=== PATIENT | male | born 1960 | race African-American/Black ===

== ENCOUNTER 2016-08-03 04:23 | Emergency (ER) | payer BC ==
[~2016-08-03] VITALS: Ht 185.4 cm; Wt 114.6 kg
[2016-08-03 04:31] VITALS: BP 134/91; PULSE 90; RESP 16; TEMP 98.2; O2SAT 96
--- NOTE | 2016-08-03 04:49 | PD ---
HPI Chief Complaint: Injury Time Seen by Provider: 04:37 Travel History International Travel<30 days: No Contact w/Intl Traveler<30days: No Traveled to known affect area: No History of Present Illness HPI The patient is a 56-year-old male that stubbed his left great toe St[place] night. He complains of pain from just proximal to the MTP joint to the distal phalanx of the great toe. He has diffuse swelling in the great toe. He does have a history of arthritis. He has a history of prediabetes. He is not on any anticoagulants. The patient states he is told was blue but this has gone away. PFS Social History Tobacco Use: No Allergies-Medications (Allergen,Severity, Reaction): Coded Allergies: No Known Allergies (Unverified , 08/03/16) Reported Meds & Prescriptions Reported Meds & Active Scripts Active Mobic (Meloxicam) 15 Mg Tab 15 Mg PO DAILY Reported Aspirin Children's (Aspirin) 81 Mg Chew 81 Mg CHEW DAILY Etodolac ER 24 HR (Etodolac) 500 Mg Anup 500 Mg PO DAILY Atorvastatin (Atorvastatin Calcium) 20 Mg Tab 20 Mg PO HS Pioglitazone (Pioglitazone HCl) 15 Mg Tab 15 Mg PO DAILY Losartan (Losartan Potassium) 25 Mg Tab 25 Mg PO DAILY Review of Systems Except as stated in HPI: all other systems reviewed are Neg Physical Exam Narrative GENERAL: The patient is alert, oriented 3 in moderate apparent distress with his left great toe pain. His vital signs show blood pressure 134/91 but otherwise normal. SKIN: Focused skin assessment warm/dry. HEAD: Atraumatic. Normocephalic. EYES: Pupils equal and round. No scleral icterus. No injection or drainage. ENT: No nasal bleeding or discharge. Mucous membranes pink and moist. NECK: Trachea midline. No JVD. CARDIOVASCULAR: Regular rate and rhythm. No murmur appreciated. RESPIRATORY: No accessory muscle use. Clear to auscultation. Breath sounds equal bilaterally. GASTROINTESTINAL: Abdomen soft, non-tender, nondistended. Hepatic and splenic margins not palpable. MUSCULOSKELETAL: No obvious deformities. No clubbing. No cyanosis. No edema. There is tenderness over the left first MTP joint but no deformity is present. There is tenderness over the proximal phalanx and only slight tenderness over the distal phalanx of the great toe. There is diffuse swelling over the entire toe. NEUROLOGICAL: Awake and alert. No obvious cranial nerve deficits. Motor grossly within normal limits. Normal speech. PSYCHIATRIC: Appropriate mood and affect; insight and judgment normal. Data Data Last Documented VS Vital Signs Date Time Temp Pulse Resp B/P Pulse Ox O2 Delivery O2 Flow Rate FiO2 08/03/16 04:44 18 96 08/03/16 04:31 98.2 90 134/91 Room Air Orders Toe (Min 2vws) (08/03/16 04:37) MDM Medical Decision Making Medical Screen Exam Complete: Yes Emergency Medical Condition: Yes Medical Record Reviewed: Yes Interpretation(s) X-ray of the right great toe show no fracture dislocation. Differential Diagnosis Fractured toe, contusion toe, turf toe, dislocated toe, cellulitis toe Narrative Course Reexamination of the toe reveals that he is mostly tender at the joints. The IP and MTP joints are the only tender joints there. It is likely he had some bleeding into the joints, he states that he had some blueness in the area. He appears to have a contusion at the IP and MTP joints. Impression: Contusion left great toe. Diagnosis Primary Impression: Contusion of left great toe without damage to nail Additional Instructions: As we discussed, this will heal fine if you elevated at night above your heart and avoid future trauma. If this continues to hurt, follow-up with a director of enterprise architecture. Med/Other Pt SpecificInfo: Prescription(s) given Scripts Meloxicam (Mobic)15 Mg Tab15 Mg PO DAILY #30 TAB Ref 0 Prov:Patrick Bundy MD 08/03/16 Disposition: 01 DISCHARGE HOME Condition: Stable Patrick Bundy MD August 03, 2016 04:49
[2016-08-03] MEDS ORDERED: ETOD500T2 PO (04:54)
[2016-08-03] MEDS ORDERED: LOSA25TA PO (04:54)
[2016-08-03] MEDS ORDERED: ASPI81CH7 CHEW (04:54)
[2016-08-03] MEDS ORDERED: PIOG15TA5 PO (04:54)
[2016-08-03] MEDS ORDERED: ATOR20TA15 PO (04:54)
--- NOTE | 2016-08-03 05:16 | RADHPO ---
EXAM DATE/TIME: 08/03/2016 04:59 [facility] COMPARISON: No previous studies available for comparison. INDICATIONS : Left great toe pain, patient hit great toe against counter 2 days ago MEDICAL HISTORY : None. SURGICAL HISTORY : None. ENCOUNTER: Initial ACUITY: 2 days PAIN SCORE: 7/10 LOCATION: Left great toe FINDINGS: Examination of the first digit of the left foot demonstrates no evidence of fracture or dislocation. No radiopaque foreign bodies are seen. The soft tissues are intact. CONCLUSION: Unremarkable examination of left first toe. Jose L Domínguez Jr., MD on August 03, 2016 at 5:15 Board Certified Radiologist. This report was verified electronically.
[2016-08-03] MEDS ORDERED: MOBI15TA PO (05:26)
[2016-08-03] MEDS ORDERED: IBUPROFEN 800 MG TAB PO ONE (05:30)
== END 2016-08-03 05:50 | disposition home or self-care (01) ==
LOC: PHED 04:23
DX: S90.112A Contusion of left great toe without damage to nail, initial encounter (principal); M19.90 Unspecified osteoarthritis, unspecified site; R73.03 Prediabetes; Z79.82 Long term (current) use of aspirin; Z79.899 Other long term (current) drug therapy; W22.8XXA Striking against or struck by other objects, initial encounter
CPT/HCPCS: 73660; 99283